=== PATIENT | male | born 1975 | race Two or more races ===

== ENCOUNTER 2017-07-16 10:09 | Emergency (ER) | payer OTHER ==
[~2017-07-16] VITALS: Ht 180.3 cm; Wt 93.0 kg
== END 2017-07-16 12:10 | disposition home or self-care (01) ==
LOC: ER 10:09
DX: S43.142A Inferior dislocation of left acromioclavicular joint, initial encounter (principal); W18.39XA Other fall on same level, initial encounter; Y93.89 Activity, other specified; Y92.89 Other specified places as the place of occurrence of the external cause; Y99.8 Other external cause status

== ENCOUNTER 2019-05-22 09:09 | Outpatient (CLI) | payer OTHER | END 2019-05-22 13:11 | disposition home or self-care (01) | LOC: RAD 09:09 | DX: M25.542 Pain in joints of left hand (principal) ==

== ENCOUNTER → 2020-01-14 15:00 | Outpatient (CLI) | payer OTHER | END | disposition home or self-care (01) | LOC: PPH VACUNA 15:00 | DX: Z23 Encounter for immunization (principal) ==

== ENCOUNTER 2020-06-15 09:25 | Outpatient (CLI) | payer OTHER | END 2020-06-15 09:34 | disposition home or self-care (01) | LOC: RAD 09:25 | PROVIDERS: ATTEND Internal Medicine Geriatric Medicine | DX: I11.9 Hypertensive heart disease without heart failure (principal) ==

== ENCOUNTER 2020-06-19 07:15 | Day surgery (SDC) | payer OTHER | END 2020-06-19 10:00 | disposition home or self-care (01) | LOC: AMB-ENDOS | PROVIDERS: ATTEND Colon & Rectal Surgery | DX: K29.50 Unspecified chronic gastritis without bleeding (principal); K31.89 Other diseases of stomach and duodenum; K64.8 Other hemorrhoids; Z12.11 Encounter for screening for malignant neoplasm of colon; Z20.822 Contact with and (suspected) exposure to COVID-19 ==

== ENCOUNTER → 2020-07-30 11:01 | Outpatient (CLI) | payer OTHER | END | disposition home or self-care (01) | LOC: LAB 11:01 | PROVIDERS: ATTEND Emergency Medicine Pediatric Emergency Medicine | DX: Z00.00 Encounter for general adult medical examination without abnormal findings (principal) ==

== ENCOUNTER → 2021-01-19 | Outpatient (CLI) | payer OTHER | END | disposition home or self-care (01) | LOC: PPH VACUNA 09:00 | PROVIDERS: ATTEND Emergency Medicine Pediatric Emergency Medicine | DX: Z23 Encounter for immunization (principal) ==

== ENCOUNTER 2021-02-22 08:00 | Outpatient (CLI) | payer OTHER | END 2021-02-22 08:30 | disposition home or self-care (01) | LOC: PPH VACUNA 08:00 | PROVIDERS: ATTEND Emergency Medicine Pediatric Emergency Medicine | DX: Z23 Encounter for immunization (principal) ==

== ENCOUNTER 2022-09-05 13:30 | Outpatient (CLI) | payer OTHER | END 2022-09-05 13:33 | disposition home or self-care (01) | LOC: LAB 13:30 | PROVIDERS: ATTEND Colon & Rectal Surgery | DX: R76.8 Other specified abnormal immunological findings in serum (principal) ==

== ENCOUNTER 2023-01-02 09:30 | Outpatient (CLI) | payer OTHER | END 2023-01-02 09:45 | disposition home or self-care (01) | LOC: PPH VACUNA 09:30 | PROVIDERS: ATTEND Emergency Medicine Pediatric Emergency Medicine | DX: Z23 Encounter for immunization (principal) ==

== ENCOUNTER 2024-02-12 09:36 | Outpatient (CLI) | payer OTHER ==
[2024-02-16 10:47] LABS: VARICELLA ZOSTER VIRUS IGM < 0.91 index (0.00-0.90)
== END 2024-02-12 10:19 | disposition home or self-care (01) ==
LOC: LAB 09:36
PROVIDERS: ATTEND Surgery
DX: B01.9 Varicella without complication (principal); Z20.820 Contact with and (suspected) exposure to varicella

== ENCOUNTER 2024-10-15 07:51 | Outpatient (CLI) | payer OTHER ==
[2024-10-15 08:21] LABS: URINE APPEARANCE Clear; URINE BILIRRUBIN Negative (NEGATIVE); URINE BLOOD Negative; URINE COLOR Dark Yellow; URINE GLUCOSE Negative (NEGATIVE); URINE KETONE Trace (NEGATIVE); URINE LEUKOCYTE Negative; URINE NITRATE Negative; URINE PROTEIN Negative (NEGATIVE); URINE UROBILINOGEN 0.2 E.U./dl
[2024-10-15 08:23] LABS: URINE EPITHELIAL CELLS 1.7 uL (0.0-38.8); URINE RBC 2.6 uL (0.0-20.8)
[2024-10-15 08:25] LABS: BASO % 0.4 % (0.1-1.2); EOS # 0.07 (0.04-0.54); EOS % 1.5 % (0.7-7.0); HEMATOCRIT 37.5 % (40.1-51.0); HEMOGLOBIN 13.1 g/dL (13.7-17.5); LYMPH # 1.75 (1.18-3.74); LYMPH % 37.6 % (19.3-53.1); MONO # 0.29 (0.24-0.82); MONO % 6.2 % (4.7-12.5); NEUT # 2.52 (1.56-6.13); NEUT % 54.1 % (34.0-71.1); PLATELET COUNT 187 K/uL (163-369); RED BLOOD COUNT 4.37 M/uL (4.63-6.08); RED CELL DISTRIBUTION WIDTH 12.2 % (11.6-14.4)
[2024-10-15 08:26] LABS: URINE BACTERIA 1.2 uL (0.0-1933); URINE WBC 1.5 uL (0.0-23.2)
[2024-10-15 08:48] LABS: INR 1.01; PARTIAL THROMBOPLASTIN TIME 25.1 SECONDS (22.0-34.0)
[2024-10-15 08:53] LABS: BILIRUBIN TOTAL 0.86 mg/dL (0.3-1.2); CALCIUM 9.6 mg/dL (8.5-10.1); CREATININE SERUM 0.89 mg/dL (0.70-1.30); GFR 91.62; GLOBULINA 2.9 G/DL (2.4-3.5); POTASSIUM 4.36 mEq/L (3.5-5.1); TOTAL PROTEIN 6.9 gm/dL (6.4-8.2)
== END 2024-10-15 07:55 | disposition home or self-care (01) ==
LOC: LAB 07:51
PROVIDERS: ATTEND Orthopaedic Surgery Sports Medicine
DX: G56.02 Carpal tunnel syndrome, left upper limb (principal)

== ENCOUNTER 2024-10-15 08:16 | Outpatient (CLI) | payer OTHER | END 2024-10-15 08:20 | disposition home or self-care (01) | LOC: RAD 08:16 | PROVIDERS: ATTEND Orthopaedic Surgery Hand Surgery | DX: Z01.810 Encounter for preprocedural cardiovascular examination (principal) ==

== ENCOUNTER 2024-10-22 11:38 | Day surgery (SDC) | payer OTHER ==
[2024-10-22] MEDS ORDERED: CEFAZOLIN SODIUM 1,000 MG VIAL IV ONE (14:00)
[2024-10-22] MEDS ORDERED: BUPIVACAINE HCL/PF 0.25% 30ML VIAL InF ONE (14:00)
[2024-10-22] MEDS ORDERED: ISOPROPYL ALCOHOL 30 ML OUNCE TOP ONE (14:00)
== END 2024-10-22 15:40 | disposition home or self-care (01) ==
LOC: CIR.AMB 11:38
PROVIDERS: ATTEND Orthopaedic Surgery Hand Surgery
DX: G56.02 Carpal tunnel syndrome, left upper limb (principal)